=== PATIENT | male | born 1990 | race Caucasian/White ===

== ENCOUNTER 2017-04-03 04:12 | Emergency (ER) | payer OTHER ==
[~2017-04-03 04:12] MED LIST: ALLE25CA OR
[2017-04-03 05:22] LABS: MEAN CORPUSCULAR HEMOGLOBIN 27.7 pg (27.0-33.0); MEAN CORPUSCULAR VOLUME 83.9 fl (80.0-96.0)
[2017-04-03 05:44] LABS: METHADONE URINE NEGATIVE (NEGATIVE)
[2017-04-03 05:53] LABS: ALBUMIN 4.7 GM/DL (3.2-5.2); ALBUMIN/GLOBULIN RATIO 1.18 (1.00-1.93); ALKALINE PHOSPHATASE 74 U/L (45-117); ALT/SGPT 37 U/L (12-78); ANION GAP 9 MEQ/L (8-16); AST/SGOT 15 U/L (15-37); BILIRUBIN,DIRECT 0.1 MG/DL (0.0-0.2); BILIRUBIN,TOTAL 0.4 MG/DL (0.2-1.0); BLOOD UREA NITROGEN 6 MG/DL (7-18); CALCIUM LEVEL 10.1 MG/DL (8.5-10.1); CARBON DIOXIDE LEVEL 28 MEQ/L (21-32); CHLORIDE LEVEL 107 MEQ/L (98-107); CREATININE FOR GFR 0.93 MG/DL (0.70-1.30); GLOMERULAR FILTRATION RATE > 60.0 (>60); GLUCOSE, FASTING 98 MG/DL (70-105); POTASSIUM SERUM 3.9 MEQ/L (3.5-5.1); SODIUM LEVEL 144 MEQ/L (136-145); TOTAL PROTEIN 8.7 GM/DL (6.4-8.2)
--- NOTE | 2017-04-03 08:17 | ED PDOC ---
Post-Departure Follow-Up I received sign out on this patient at 0700. Awaiting social work consultation and Psych MD consultation. This has been completed with no concerns for patient safetly. 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 Psychitrist foreign law consultant (Dr. Rivas) has no concerns. TRENTON IZAGUIRRE MD Apr 03, 2017 08:17
[2017-04-03 08:41] VITALS: BP 130/77
== END 2017-04-03 09:00 | disposition home or self-care (01) ==
LOC: M ED 04:12
DX: F10.220 Alcohol dependence with intoxication, uncomplicated (principal); S51.811A Laceration without foreign body of right forearm, initial encounter; S51.812A Laceration without foreign body of left forearm, initial encounter; X78.1XXA Intentional self-harm by knife, initial encounter; Y92.89 Other specified places as the place of occurrence of the external cause; Y93.89 Activity, other specified; Y99.8 Other external cause status; F41.9 Anxiety disorder, unspecified; J30.89 Other allergic rhinitis
CPT/HCPCS: 36415; 80048; 80076; 80307; 84443; 85027; 99284; G0480